=== PATIENT | male | born 1995 | race Caucasian/White ===

== ENCOUNTER 2017-03-27 11:59 | Emergency (ER) | payer BC ==
[2017-03-27] MEDS ORDERED: Albuterol/Ipratropium 3.0-0.5 MG/3 ML Neb Soln NEB ONE (12:31)
--- NOTE | 2017-03-27 12:38 | EDM.PDOC ---
ED HPI GENERAL MEDICAL PROBLEM - General Chief Complaint: Respiratory Problem Stated Complaint: CHEST PAIN, COUGH Time Seen by Provider: 03/27/17 12:37 Source of Information: Reports: Patient History Limitations: Reports: No Limitations - History of Present Illness INITIAL COMMENTS - FREE TEXT/NARRATIVE: History of present illness: [21-year-old male comes in complaining of nausea vomiting and intermittent fevers. Patient indicates now after numerous bouts of vomiting since abdominal muscles are sore and he is concerned that he might have the flu.] Review of systems: As per history of present illness and below otherwise all systems reviewed and negative. Past medical history: As per history of present illness and as reviewed below otherwise noncontributory. Surgical history: As per history of present illness and as reviewed below otherwise noncontributory. Social history: No reported history of drug or alcohol abuse. Family history: As per history of present illness and as reviewed below otherwise noncontributory. Physical exam: HEENT: Atraumatic, normocephalic, pupils reactive, negative for conjunctival pallor or scleral icterus, mucous membranes moist, throat clear, neck supple, nontender, trachea midline. Lungs: Diminished throughout with wet bronchial vesicular breath sounds that improve with a cough, otherwise breath sounds equal bilaterally, chest nontender. Heart: S1S2, regular, negative for clicks, rubs, or JVD. Abdomen: Soft, nondistended, nontender. Negative for masses or hepatosplenomegaly. Negative for costovertebral tenderness. Pelvis: Stable nontender. Genitourinary: Deferred. Rectal: Deferred. Extremities: Atraumatic, negative for cords or calf pain. Neurovascular unremarkable. Neuro: Awake, alert, oriented. Cranial nerves II through XII unremarkable. Cerebellum unremarkable. Motor and sensory unremarkable throughout. Exam nonfocal. Global assessment is benign save the subjective complaint as noted in history of present illness Diagnostics: [Influenza A and B] Therapeutics: [Duo neb] Impression: [#1 viral syndrome #2 nausea vomiting] Plan: [Zofran] Definitive disposition and diagnosis as appropriate pending reevaluation and review of above. Left Generalized Pain Score (Numeric/FACES): 8 - Related Data Allergies Allergy/AdvReac Type Severity Reaction Status Date / Time No Known Allergies Allergy Verified 03/27/17 12:37 Home Meds: Home Meds Ondansetron [Zofran] 4 mg PO Q4H #30 tab 03/27/17 [Rx] ED ROS GENERAL - Review of Systems Review Of Systems: See Below (History of present illness) ED EXAM, GENERAL - Physical Exam Exam: See Below (See history of present illness) Course - Vital Signs Last Recorded V/S: Last Vital Signs Temp 36.3 C 03/27/17 12:32 Pulse 129 H 03/27/17 12:32 Resp 20 03/27/17 12:32 BP 135/87 03/27/17 12:32 Pulse Ox 95 03/27/17 12:32 - Orders/Labs/Meds Orders: Active Orders 24 hr Category Date Time Status RT Aerosol Therapy [RC] ASDIRECTED Care 03/27/17 12:32 Active Meds: Medications Discontinued Medications Generic Name Dose Route Start Last Admin Trade Name Freq PRN Reason Stop Dose Admin Albuterol/Ipratropium 3 ml 03/27/17 12:31 03/27/17 12:51 Duoneb 3.0-0.5 Mg/3 Ml NEB 03/27/17 12:32 3 ml ONETIME ONE Administration Ondansetron HCl 4 mg 03/27/17 13:11 Zofran Odt PO 03/27/17 13:12 ONETIME ONE Departure - Departure Time of Disposition: 13:18 Disposition: Home, Self-Care 01 Condition: Good Clinical Impression: Viral syndrome, Nausea & vomiting - Discharge Information Prescriptions: Ondansetron [Zofran] 4 mg PO Q4H #30 tab Referrals: PCP,None [Primary Care Provider] - Forms: ED Department Discharge Additional Instructions: The following information is given to patients seen in the emergency department who are being discharged to home. This information is to outline your options for follow-up care. We provide all patients seen in our emergency department with a follow-up referral. The need for follow-up, as well as the timing and circumstances, are variable depending upon the specifics of your emergency department visit. If you don't have a primary care physician on staff, we will provide you with a referral. We always advise you to contact your personal physician following an emergency department visit to inform them of the circumstance of the visit and for follow-up with them and/or the need for any referrals to a consulting specialist. The emergency department will also refer you to a specialist when appropriate. This referral assures that you have the opportunity for follow-up care with a specialist. All of these measure are taken in an effort to provide you with optimal care, which includes your follow-up. Under all circumstances we always encourage you to contact your private physician who remains a resource for coordinating your care. When calling for follow-up care, please make the office aware that this follow-up is from your recent emergency room visit. If for any reason you are refused follow-up, please contact the [facility] Emergency Department at and asked to speak to the emergency department charge nurse. Medication as directed Follow up with PCP in 2-3 days Return to ED as needed as discussed - My Orders Last 24 Hours: My Active Orders 03/27/17 12:32 RT Aerosol Therapy [RC] ASDIRECTED - Assessment/Plan Last 24 Hours: My Active Orders 03/27/17 12:32 RT Aerosol Therapy [RC] ASDIRECTED
[2017-03-27] MEDS ORDERED: Ondansetron 4 MG Tab.DIS PO ONE (13:11)
== END 2017-03-27 13:31 | disposition home or self-care (01) ==
LOC: MW.ED 11:59
DX: B34.9 Viral infection, unspecified (principal)
CPT/HCPCS: 87804; 94640; 99284; A9270; 99283